=== PATIENT | male | born 1975 | race Caucasian/White ===

== ENCOUNTER 2017-01-26 20:45 | Emergency (ER) | payer OTHER ==
[2017-01-26 23:43] LABS: HEMOGLOBIN 14.6 gm/dl (14.0-17.5); RED BLOOD COUNT 4.51 M/UL (4.20-5.50); WHITE BLOOD COUNT 12.1 K/UL (4.5-11.0)
[2017-01-26 23:59] LABS: BUN/CREATININE RATIO 10 (0-10)
== END 2017-01-27 02:37 | disposition home or self-care (01) ==
LOC: ER1 20:45
PROVIDERS: Family Medicine
DX: R51 Headache (principal); R07.89 Other chest pain; I10 Essential (primary) hypertension; F17.200 Nicotine dependence, unspecified, uncomplicated; Z88.8 Allergy status to other drugs, medicaments and biological substances; Z79.899 Other long term (current) drug therapy
CPT/HCPCS: 36415; 70450; 71010; 80053; 82550; 82553; 83874; 84484; 85025; 93005; 96374; 96375; 99285; J1200; J2270; J2765; J7030

== ENCOUNTER 2021-04-30 22:41 | Emergency (ER) | payer OTHER ==
[~2021-04-30 22:41] MED LIST: ASPIRIN EC81 MG PO; ATORVASTATIN CA20 MG PO; CLOPIDOGREL75 MG PO; LISINOPRIL10 MG PO; LOPRESSOR 50 MG50 MG PO; NORVASC10 MG PO
[2021-04-30 23:18] LABS: HEMOGLOBIN 14.6 gm/dl (14.0-17.5); RED BLOOD COUNT 4.48 M/UL (4.20-5.50); WHITE BLOOD COUNT 11.9 K/UL (4.5-11.0)
[2021-04-30 23:49] LABS: BUN/CREATININE RATIO 10 (0-10)
== END 2021-05-01 00:30 | disposition left against medical advice (07) ==
LOC: ER1 22:41 → CDU 05-01 00:23 → ER1 05-01 00:30
PROVIDERS: Emergency Medicine
DX: R07.9 Chest pain, unspecified (principal); R55 Syncope and collapse; I10 Essential (primary) hypertension; F17.200 Nicotine dependence, unspecified, uncomplicated; Z91.14 Patient's other noncompliance with medication regimen
CPT/HCPCS: 71045; 80053; 82550; 82553; 83690; 83735; 83874; 83880; 84484; 85025; 93005; 99285; J0360

== ENCOUNTER 2021-05-07 01:17 | Observation (INO) | payer OTHER ==
[~2021-05-07] VITALS: Ht 180.3 cm; Wt 112.5 kg
[2021-05-07 01:46] LABS: HEMOGLOBIN 14.5 gm/dl (14.0-17.5); RED BLOOD COUNT 4.49 M/UL (4.20-5.50); WHITE BLOOD COUNT 10.4 K/UL (4.5-11.0)
[2021-05-07 02:10] LABS: BUN/CREATININE RATIO 9 (0-10)
[2021-05-08] MEDS ORDERED: ATORVASTATIN CA20 MG PO (11:38)
[2021-05-08] MEDS ORDERED: ASPIRIN EC81 MG PO (11:38)
[2021-05-08] MEDS ORDERED: CLOPIDOGREL75 MG PO (11:38)
[2021-05-08] MEDS ORDERED: CARVEDILOL12.5 MG PO (11:38)
[2021-05-08] MEDS ORDERED: ISOSORBIDE MONO30 MG PO (11:38)
[2021-05-08] MEDS ORDERED: NICOTINE PATCH1 EAC2 TOP (11:38)
[2021-05-08] MEDS ORDERED: AMLODIPINE BESYL5 MG PO (11:38)
== END 2021-05-08 17:49 | disposition home or self-care (01) ==
LOC: ER1 01:17 → M/S 03:06 → CDU 03:06 → M/S 05:58
PROVIDERS: Emergency Medicine; ADMIT Internal Medicine
DX: R07.9 Chest pain, unspecified (principal); I16.0 Hypertensive urgency; I25.10 Atherosclerotic heart disease of native coronary artery without angina pectoris; I11.9 Hypertensive heart disease without heart failure; E66.9 Obesity, unspecified; Z79.01 Long term (current) use of anticoagulants; Z79.82 Long term (current) use of aspirin; I25.2 Old myocardial infarction; Z95.5 Presence of coronary angioplasty implant and graft; Z20.822 Contact with and (suspected) exposure to COVID-19; R00.1 Bradycardia, unspecified; Z91.14 Patient's other noncompliance with medication regimen; F17.200 Nicotine dependence, unspecified, uncomplicated; E78.5 Hyperlipidemia, unspecified
CPT/HCPCS: 36415; 71045; 80053; 80061; 82550; 82553; 83036; 83735; 83874; 83880; 84439; 84443; 84484; 84550; 85025; 85610; 85730; 93005; 99285; G0378; U0002